=== PATIENT | male | born 1965 | race Caucasian/White ===

== ENCOUNTER 2016-12-25 17:52 | Emergency (ER) | payer MEDICAID ==
[~2016-12-25] VITALS: Ht 182.9 cm; Wt 81.6 kg
[2016-12-25 18:11] VITALS: BP 136/79; PULSE 116; RESP 16; TEMP 97.6; O2SAT 94
--- NOTE | 2016-12-25 18:14 | NUR ---
Patient to ER bed 7 to gown for evaluation. Traiged at bedside. Side rails up. Report given to Kiersten MURDOCK.
[2016-12-25] MEDS ORDERED: ACETAMINOPHEN 325 MG TABLET PO ONE (18:15)
--- NOTE | 2016-12-25 18:16 | NUR ---
ER MD Abel at bedside evaluating the patient
--- NOTE | 2016-12-25 18:33 | NUR ---
Radiology at bedside with portable xray
[2016-12-25] MEDS ORDERED: HYDROcodone/ACETAMIN 5-325 MG TAB (NORCO/ VICODIN) PO ONE (19:15)
--- NOTE | 2016-12-25 19:18 | NUR ---
Patient given written and verbal discharge instructions and verbalizes understanding. Patient states that he is improved with splinting. ER MD discussed with patient the results and treatment provided. Given copies of tests performed in ER. Patient in stable condition. ID arm band removed. Patient educated on pain management and to follow up with PMD. Pain Scale 5/10, patient states that he does not want any additional pain medication, states, "I'm good." Opportunity for questions provided and answered.
== END 2016-12-25 19:18 | disposition home or self-care (01) ==
LOC: SED 17:52
DX: M79.671 Pain in right foot (principal); S92.321D Displaced fracture of second metatarsal bone, right foot, subsequent encounter for fracture with routine healing; S92.331D Displaced fracture of third metatarsal bone, right foot, subsequent encounter for fracture with routine healing; S92.341D Displaced fracture of fourth metatarsal bone, right foot, subsequent encounter for fracture with routine healing; X58.XXXD Exposure to other specified factors, subsequent encounter
CPT/HCPCS: 99284

== ENCOUNTER 2017-05-17 12:34 | Emergency (ER) | payer MEDICAID ==
[~2017-05-17] VITALS: Ht 182.9 cm; Wt 81.6 kg
[2017-05-17 12:41] VITALS: BP_SYST 134
[2017-05-17] MEDS ORDERED: IBUPROFEN 800 MG TABLET PO ONE (16:15)
[2017-05-17 16:29] VITALS: BP_SYST 134
== END 2017-05-17 16:29 | disposition home or self-care (01) ==
LOC: SED 12:34
DX: S86.912A Strain of unspecified muscle(s) and tendon(s) at lower leg level, left leg, initial encounter (principal); X58.XXXA Exposure to other specified factors, initial encounter; Y93.51 Activity, roller skating (inline) and skateboarding; Y92.89 Other specified places as the place of occurrence of the external cause; Y99.8 Other external cause status
CPT/HCPCS: 99282

== ENCOUNTER 2018-08-11 19:34 | Emergency (ER) | payer MEDICAID | END 2018-08-11 20:03 | disposition left against medical advice (07) | LOC: SED 19:34 | DX: Z53.21 Procedure and treatment not carried out due to patient leaving prior to being seen by health care provider (principal) ==